=== PATIENT | female | born 1995 | race Caucasian/White ===

== ENCOUNTER 2017-07-07 06:39 | Emergency (ER) | payer OTHER ==
[~2017-07-07] VITALS: Ht 180.3 cm; Wt 100.0 kg
[~2017-07-07 06:39] MED LIST: HYDR1TAB PO; LEVO1TAB17 PO
[2017-07-07 06:48] VITALS: BP 129/84; PULSE 119; RESP 20; O2SAT 98
--- NOTE | 2017-07-07 07:28 | ED.REPORT ---
HPI-General Illness Date of Service Jul 07, 2017 ED Provider: Kelsy Marrero MD Patient is a 21 year old female who presents to the ED complaining of a headache onset a few days ago that she feels is related to her wisdom teeth which are impacted. She describes her headache as localized to the L side, throbbing, a 8/10 in severity, and radiating up from her teeth. Associated symptoms include myalgia and subjective fever. Pt reports that she has had dental pain for the past few weeks, worse on the L side than the R. She denies nausea, vomiting, visual changes, or any other symptoms. She has taken Advil and hydrocodone for her pain. Pt denies any recent illness. Nursing Notes Stated Complaint: DENTAL PAIN Chief Complaint: Headache Nursing Notes Reviewed: Yes Allergies: Coded Allergies: penicillin G (Verified Allergy, Unknown, 07/07/17) Scheduled Levonorgestrel-Eth Estra-Expunged Drug, Do No (Slkjcg-10-Pnlzntwl Drug, Do Not Renew!) 1 Tab Tablet 1 TAB PO DAILY Scheduled PRN Hydrocod/APAP-Expunged, Do Not Renew! (VICODIN 5/500-Expunged Drug, Do Not Renew ) 1 Udtab Tablet 1-2 TAB PO Q4 PRN PRN Hydrocodone-Acetaminophen 5-325 mg (Hydrocodone-Acetaminophen 5-325 mg) 1 Each Tablet 1 TABLET PO Q4H PRN PRN For Pain General Time Seen by MD: 07:27 Chief Complaint Headache Hx Obtained From: Patient Arrived By: Walk-in Sudden in Onset?: No Onset Occurred: 2 days ago Symptom Duration: Waxes and wanes Location: : Head Quality: Throbbing Severity: Current: Pain level 9 out of 10 Severity: Maximum: Pain level 9 out of 10 Associated with: Reports: Fever (subjective ) Additional Notes: myalgia Pertinent Negative: Pt denies other symptoms Past Medical History Past Medical History Migraines Past Surgical History None reported Smoking History Unknown if Ever Smoker Ambulatory Status Independent Review of Systems Full Review of Systems Constitutional: Reports: Fever (subjective ) Ears / Nose / Throat: Reports: Toothache GI: Denies: Nausea, Vomiting Musculoskeletal: Reports: Myalgia Neurologic: Reports: Headache, Denies: Vision change Complete sys rev & neg: except as marked. Physical Exam Vital Signs Vital Signs Date Time Temp Pulse Resp B/P Pulse Ox O2 Delivery O2 Flow Rate FiO2 07/07/17 10:19 98 16 103/67 100 Room Air 07/07/17 10:11 37.0 98 16 103/67 100 Room Air 07/07/17 06:48 37.6 119 20 129/84 98 Room Air Initial VS: Reviewed, Vital signs abnormal Head / Eyes: Atraumatic, Normocephalic Skin: Warm, Dry General/Constitutional: Awake, Alert ENT: Pharynx NL No swelling or discharge Neck: Supple, No adenopathy Respiratory / Chest: Atraumatic, Breath sounds NL, Breath sounds = bilat, No respiratory distress Cardiovascular: Regular rhythm, Heart sounds NL Heart Rate / Rhythm: Positive: Tachycardia Abdomen: Atraumatic, Soft, No guarding, No rebound right mid to lower abdominal discomfort Neurologic: Oriented X3, Speech NL, No motor deficits, No sensory deficits [id number] normal No ataxia Strength and sensation intact bilaterally Interpretation & Diagnostics Lab Results Interpretation Result Diagram: 07/07/17 0830 07/07/17 0830 Test 07/07/17 08:30 White Blood Count 8.9th/mm3 (3.8-10.1) Red Blood Count 4.72mil/mm3 (3.90-5.20) Hemoglobin 14.0g/dL (12.0-15.6) Hematocrit 40.4% (35.0-46.0) Mean Corpuscular Volume 85.6fL (81-100) Mean Corpuscular Hemoglobin 29.7pg (27.0-35.0) Mean Corpuscular Hemoglobin Concent 34.7% (32.0-37.0) Red Cell Distribution Width 12.6% (12.3-15.4) Platelet Count 270bil/L (150-400) Neutrophils (%) (Auto) 83.5% (40-74) Lymphocytes (%) (Auto) 8.1% (14-46) Monocytes (%) (Auto) 7.9% (4-12) Eosinophils (%) (Auto) 0% (0-5) Basophils (%) (Auto) 0.3% (0-3) Sodium Level 134mEq/L (134-144) Potassium Level 4.1mEq/L (3.5-5.2) Chloride Level 100mEq/L (97-108) Carbon Dioxide Level 20mmol/L (18-29) Blood Urea Nitrogen 10mg/dL (6-20) Creatinine 0.85mg/dL (0.57-1.00) Estimat Glomerular Filtration Rate 122mL/min (>59) Glucose Level 100mg/dL (60-99) Calcium Level 9.4mg/dL (8.5-10.1) Magnesium Level 1.6mg/dL (1.6-2.6) Procedures Dental Nerve Block Time: 08:58 Block Performed by: ED physician Consent / Setup / Site Prep: Informed consent provided, Consent from patient , Time-out performed, Hand hygiene observed, Stand sterile technique Local Anesthesia: Bupivacaine 0.5%, 1cc (at each wisdom tooth ) Post-Procedure / Complications: No complications, Condition improved, Tolerated procedure well, Patient stable Re-Eval/Medical Decision Med Decision/Clinical Course The patient has not been eating and drinking much due to her dental pain. There is no sign of infection in her mouth, she does need her wisdom teeth removed. I did tooth blocks on her left upper and lower which improved her pain. She was treated for her headache and had almost complete resolution there are no signs concerning for meningitis, subarachnoid hemorrhage, or intracranial mass. The patient does not have a history of migraines and her symptoms are not consistent with a migraine. The patient's tachycardia is likely related to her poor food and fluid intake, her tachycardia improved with treatment here. Time of Eval: 08:58 Re-Evaluation/Progress Note: Rechecked pt who reports her headache has improved and is now a 5/10 in severity. Time of Eval: 10:05 Re-Evaluation/Progress Note: Rechecked pt who states her headache is now a 1 or 2/10. Her HR has improved. Discussed plan for discharge with dental f/u. Patient understands and agrees with plan. All questions addressed at this time. Counseled Regarding: Diagnosis, Need for follow-up, When/why to return to ED Discharge & Departure Primary Impression: Pain, dental Additional Impression: Headache Headache type: unspecified Headache chronicity pattern: unspecified pattern Intractability: not intractable Qualified Code: R51 - Headache Disposition: Home Discharge Condition All VS Reviewed: Yes Condition: Stable Additional Instructions: Thank you for entrusting us with your care. Your examination is reassuring. We did not find a dangerous cause for your symptoms at this time. You were given a numbing injection to help relieve your dental pain. I have prescribed you some pain medication. Please take as directed. Eat a liquid diet and drink plenty of fluids. I suggest you follow up with a dentist to discuss having your wisdom teeth removed. Return to the emergency department if you experience high fevers, increasing pain, numbness, weakness, or tingling in your arms or legs, vision changes, or any other new or concerning symptoms. Referrals: OTHER,PHYSICIAN (PCP) Scribe Attestation Portions of this note were transcribed by Meg Hogan. I, Dr. Marrero personally performed the history, physical exam and medical decision-making; I reviewed and confirmed the accuracy of the information in the transcribed note. Signed by: Dileep Bravo, 07/07/17 Kelsy Marrero MD Jul 07, 2017 07:28 MEG HOGAN Jul 07, 2017 08:06
[2017-07-07] MEDS ORDERED: ProchlorPERazine 5 mg/mL 2 mL Inj IVPUSH ONE (08:10)
[2017-07-07] MEDS ORDERED: 0.9% Sodium Chloride 1,000 ML IV ONE (08:10)
[2017-07-07 08:41] LABS: BASOPHILS % (AUTO) 0.3 % (0-3); EOSINOPHILS % (AUTO) 0 % (0-5); MONOCYTES % (AUTO) 7.9 % (4-12); Mean Corpuscular Hemoglobin 29.7 pg (27.0-35.0); Mean Corpuscular Volume 85.6 fL (81-100); NEUTROPHILS % (AUTO) 83.5 % (40-74); Platelet Count 270 bil/L (150-400)
[2017-07-07 08:55] LABS: Magnesium 1.6 mg/dL (1.6-2.6)
[2017-07-07] MEDS ORDERED: HYDROmorphone 0.5 mg/0.5 mL iSecure Syringe IVPUSH ONE (09:05)
[2017-07-07] MEDS ORDERED: HYDR-4003 PO (10:10)
[2017-07-07 10:11] VITALS: BP 103/67; PULSE 98; RESP 16; O2SAT 100
[2017-07-07 10:19] VITALS: BP 103/67; PULSE 98; RESP 16; O2SAT 100
== END 2017-07-07 10:20 | disposition home or self-care (01) ==
LOC: SED 06:39
DX: K08.89 Other specified disorders of teeth and supporting structures (principal); R51 Headache; R50.9 Fever, unspecified; M79.7 Fibromyalgia; G43.909 Migraine, unspecified, not intractable, without status migrainosus; Z88.0 Allergy status to penicillin
CPT/HCPCS: 36415; 64400; 80048; 83735; 85025; 96361; 96374; 96375; 99284; J0780; J1170; J1200; J1885; J7030